=== PATIENT | female | born 1985 | race Asian ===

== ENCOUNTER 2017-09-19 08:31 | Emergency (ER) | payer OTHER ==
[~2017-09-19] VITALS: Ht 147.3 cm; Wt 74.8 kg
[2017-09-19 08:31] VITALS: BP_SYST 115
[2017-09-19] MEDS ORDERED: IBUP-1480 (09:13)
[2017-09-19 10:04] VITALS: BP_SYST 113
== END 2017-09-19 10:04 | disposition home or self-care (01) ==
LOC: SED 08:31
DX: S93.402A Sprain of unspecified ligament of left ankle, initial encounter (principal); S80.01XA Contusion of right knee, initial encounter; E11.9 Type 2 diabetes mellitus without complications; W01.0XXA Fall on same level from slipping, tripping and stumbling without subsequent striking against object, initial encounter; Y93.89 Activity, other specified; Y92.89 Other specified places as the place of occurrence of the external cause; Y99.8 Other external cause status
CPT/HCPCS: 73560-TC; 81025; 99284